=== PATIENT | male | born 1980 | race Caucasian/White ===

== ENCOUNTER 2019-02-12 23:19 | Emergency (ER) | payer OTHER ==
[2019-02-12 23:29] VITALS: BP 159/92; PULSE 80; TEMP 98.2; BMI 25.7
[2019-02-13] MEDS ORDERED: ACETAMINOPHEN 500 MG TABLET (FP) PO ONE (01:28)
[2019-02-13] MEDS ORDERED: LIDOCAINE 5% TOPICAL PATCH TP ONE (01:31)
[2019-02-13] MEDS ORDERED: ACETAMINOPHEN 325 MG TABLET (FP) ONE (01:37)
--- NOTE | 2019-02-13 01:37 | PDOC ---
Attending Attestation - Resident Resident Name: Chaka Maldonado - ED Attending Attestation I have performed the following: I have examined & evaluated the patient, The case was reviewed & discussed with the resident, I agree w/resident's findings & plan - HPI HPI: 02/13/19 06:02 Pt comes with left trapezius and neck pain. He drivees with his left arm. May be muscle spasm. May be torticollis. 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 - Physicial Exam PE: 02/13/19 06:02 Normal exam. Paraspinal cervical muscle spasm. Pt has no weakness of the left arm. Pt has FROM at the shoulders and no weakness in the elft rotator cuff. - Medical Decision Making 02/13/19 06:03 Pt treated with analgesics and muscle relaxants and he is feeling better. Home with mm relaxants and analgesia.
[2019-02-13] MEDS ORDERED: LIDOCAINE 5% TOPICAL PATCH ONE (01:38)
[2019-02-13] MEDS ORDERED: diphenhydrAMINE HCL 25 MG CAPSULE (FP) PO ONE ×2 (01:46→01:49)
--- NOTE | 2019-02-13 01:56 | PDOC ---
History of Present Illness - General Chief Complaint: Pain, Acute Stated Complaint: LEFT SHOULDER PAIN Time Seen by Provider: 02/13/19 01:17 History Source: Patient Exam Limitations: No Limitations - History of Present Illness Initial Comments: HPI: 38 y/o male presenting to [facility] ER complaining of five days of left neck and posterior shoulder pain with occasional radiation to lateral aspect of left upper extremity. Believes pain started while he was sitting in a chair. Reproducible with left lateral rotation of the neck and lying in the left lateral recumbent position. Denies numbness or tingling in left arm. Denies trauma to the area. Attempt relief with Motrin with limited success. Social Hx: - Works as [employer] Hx: - Pt denies past medical history. Denies prescription medications. Surgical Hx: - Denies past surgical history. Review of Systems: In addition to that documented in the HPI above, the additional ROS was obtained : Constitutional: Denies fevers or chills Head: Denies vision changes ENMT: Denies sore throat CV: Denies chest pain Resp: Denies SOB GI: Denies abd pain, vomiting, or diarrhea : Denies painful urination MSK: Denies recent trauma Skin: Denies new rashes Neuro: Denies new numbness or tingling or weakness Endocrine: Denies polyuria Heme: Denies bleeding or bruising Physical Examination: Constitutional: Well-developed, well-nourished adult male in no acute distress or obvious discomfort. Muscular body habitus. Found sleeping in right lateral recumbent position on hospital bed. Answered all questions appropriately and completely. Speech was non-labored, non-pressured. Head: Normocephalic. No obvious external signs of trauma. Neck: Supple, trachea is midline. Pain reproducible with left lateral rotation. Cardiovascular / Chest: Regular rate and regular rhythm. No murmur, rubs, clicks , or gallops. Peripheral pulses: radial pulses full. Respiratory: Breathing unlabored. Equal chest rise and fall. Clear to auscultation bilaterally. No stridor, no wheezing, no rhonchi. Gastrointestinal: abdomen is soft, non-tender, non-distended. Neuro: Alert and oriented x4. Moving all four extremities spontaneously. Upper extremity: proximal and distal strength 5/5. Clinical Trial Leader strength 5/5 - equal and symmetric. Unable to elicit TDR in left upper extremity. MSK: Left shoulder non-tender with palpation. Normal posterior left off and empty can test. Active and passive ROM of left shoulder and elbow unremarkable. No midline cervical tenderness or obvious deformity. Skin: Warm, dry, and intact. No bruising, rashes, or other lesions. Psych: Affect: appropriate. Mood: normal. MDM: *Reviewed vital signs, nursing notes, and prior visit documentation (if available). 38 y/o male presenting with five days of left sided neck pain. Afebrile. Vitals unremarkable for tachycardia or hypotension. Physical exam as described above. Neurologically intact. Suspect likely paraspinal muscle strain vs spasm. Given Acetaminophen, Lidoderm Patch, Robaxin, Benadryl, and Toradol for symptom relief. Prescribed short course of Robaxin. Provided list of stretches for further symptom relief. Chaka Maldonado M.D., PGY2 Emergency Medicine Resident Past History - Past Medical History Allergies/Adverse Reactions: Allergies Allergy/AdvReac Type Severity Reaction Status Date / Time No Known Allergies Allergy Verified 02/12/19 23:27 Home Medications: Ambulatory Orders Methocarbamol [Robaxin -] 500 mg PO TID #21 tablet 02/13/19 COPD: No - Immunization History Immunization Up to Date: Yes - Psycho Social/Smoking Cessation Hx Smoking History: Never smoked Have you smoked in the past 12 months: No Information on smoking cessation initiated: No Hx Alcohol Use: No Drug/Substance Use Hx: No *Physical Exam - Vital Signs Last Vital Signs Temp Pulse Resp BP Pulse Ox 98.2 F 80 20 159/92 99 02/12/19 23:27 02/12/19 23:27 02/12/19 23:27 02/12/19 23:27 02/12/19 23:27 ED Treatment Course - Medications Given in the ED: ED Medications Discontinued Medications Generic Name Dose Route Start Last Admin Trade Name Freq PRN Reason Stop Dose Admin Acetaminophen 975 mg 02/13/19 01:28 02/13/19 01:39 Tylenol - PO 02/13/19 01:29 975 mg ONCE ONE Administration Diphenhydramine HCl 50 mg 02/13/19 01:46 02/13/19 01:50 Benadryl - PO 02/13/19 01:47 50 mg ONCE ONE Administration Lidocaine 1 patch 02/13/19 01:31 02/13/19 01:39 Lidoderm Patch - TP 02/13/19 01:32 1 patch ONCE ONE Administration Discharge - Discharge Information Problems reviewed: Yes Clinical Impression/Diagnosis: Neck pain on left side Condition: Good Disposition: HOME - Admission No - Additional Discharge Information Prescriptions: Methocarbamol [Robaxin -] 500 mg PO TID #21 tablet - Follow up/Referral - Patient Discharge Instructions Patient Printed Discharge Instructions: DI for Neck Pain Additional Instructions: You were seen today for left sided neck and shoulder pain. The discomfort is likely caused by a muscle strain or spasm. It will likely get better over the next several days. I have sent a prescription for Robaxin to your pharmacy. Take as directed on the package insert. Do not exceed the recommended dosage. THIS MEDICATION MAY CAUSE DROWSINESS. DO NOT DRIVE OR OPERATE HEAVY MACHINERY WHILE USING. You can take over the counter Tylenol or Advil as needed for pain. Take as directed on the package insert. Do not exceed the recommended dosage. Follow up with your primary care doctor within the next week or as needed. You will need to call to make an appointment. Go to the nearest emergency department if your condition worsens or you feel like you need additional emergency evaluation. Below are a list of stretches that may help with your pain: Stretching exercises The range of motion of the neck must be restored and preserved after an injury; this is done with exercises that stretch and strengthen the neck muscles. Range of motion exercises and stretching may help decrease pain from muscle injury. It is best to perform stretching exercises when the muscles are warm, such as after the application of heat, or after a few minutes of cardiovascular warm-up exercises. Exercises can be performed in the morning to relieve stiffness and again at night before going to bed. Expect mild, achy muscle pain if you are new to exercise. A sharp or electric pain in the shoulder or arm is not normal and should be reported to a health care provider. Do not attempt to perform these exercises if you have a pinched nerve in the neck, especially if there is pain or numbness into the arm and hand, unless recommended by a health care provider. While these exercises can dramatically improve symptoms of a pinched nerve, they can actually make the problem worse if performed improperly. The most useful stretching exercises for the neck include the following: -Neck bending Tilt the head forward and try to touch your chin to your neck. This motion is more of a nod. Hold for a few seconds, breathe in gradually, and exhale slowly with each exercise. Exhaling with the movement helps relax the muscles. Repeat 10 to 15 times. Relax the neck and back muscles with each neck bend. -Shoulder rolls In the sitting or standing position, hold the arms at the side with the elbows bent. Try to pinch the shoulder blades together. Roll the shoulders backwards 10 to 15 times, moving in a rhythmic, rowing motion. Proper neck alignment posture is important during this exercise. Rest. Roll the shoulders forwards 10 to 15 times. Other exercise may include neck rotation, neck tilting, vertical shoulder stretches, upper back stretches, and back bending. -Neck rotation Slowly look to the right. Hold for a few seconds. Look to the center. Rest for a few seconds between movements. Repeat 10 to 15 times. Perform on the left side. -Neck tilting Look straight forward, then tilt the top of the head to the right, trying to touch your right ear to the right shoulder (without moving the shoulder). Hold in place for a few seconds. Return the head to the center. Repeat 10 to 15 times. Repeat on the left side. -Vertical shoulder stretches In the sitting or standing position, use the right hand to hold the left wrist and pull the arm (and shoulder) up and over the head, towards the right. Hold for five seconds. Keep the left shoulder and back muscles relaxed. Rest and repeat 10 to 15 times. Repeat using left hand to hold right wrist. -Upper back stretches In the standing position, lean forward from the hips and rest both hands on a low counter with the elbows straight. Exhale, relax the neck and shoulders, and allow the head to fall forward as you round the upper back. This requires the shoulder blades to spread apart and mimics the motion of a cat stretching its back. Exhaling with the motion helps to relax the muscles. Return to the standing position with hands on a counter. Repeat slowly 10 times. -Upper back side bends Stand or sit up straight in a chair. Bend the trunk to the right while holding the hands together slightly behind the neck for support. Hold for five seconds, and then return to center. Repeat to the left. Repeat 10 to 15 times. Keep the lower back straight or supported against a chair. Remember to inhale and exhale through the abdomen and not hold your breath. Print Language: LITHUANIAN - Post Discharge Activity Work/Back to School Note: Back to Work
[2019-02-13] MEDS ORDERED: METHOCARBAMOL 500 MG TABLET PO ONE (02:34)
[2019-02-13] MEDS ORDERED: METHOCARBAMOL 500 MG TABLET ONE (02:41)
[2019-02-13] MEDS ORDERED: KETOROLAC TROMETHAMINE 60 MG/2 ML VIAL IM ONE (04:04)
[2019-02-13] MEDS ORDERED: KETOROLAC TROMETHAMINE 60 MG/2 ML VIAL ONE (04:04)
[2019-02-13] MEDS ORDERED: KETOROLAC TROMETHAMINE 30 MG/1 ML VIAL IM ONE (04:05)
--- NOTE | 2019-02-13 16:48 | EKG ---
Test Reason : Blood Pressure : / mmHG Vent. Rate : 072 BPM Atrial Rate : 072 BPM P-R Int : 148 ms QRS Dur : 104 ms QT Int : 388 ms P-R-T Axes : 057 047 053 degrees QTc Int : 424 ms NORMAL SINUS RHYTHM NORMAL ECG NO PREVIOUS ECGS AVAILABLE Confirmed by TIMOTHY CHAMBERS MD ([id number]) on 02/13/2019 4:47:41 PM Referred By: Confirmed By:TIMOTHY CHAMBERS MD
[2019-02-13] MEDS ORDERED: LIDOCAINE PATCH REMOVAL MC SCH (22:00)
== END 2019-02-13 04:02 | disposition home or self-care (01) ==
LOC: JER 23:19
PROC: 3E0233Z Introduction of Anti-inflammatory into Muscle, Percutaneous Approach (ICD-10-PCS; principal; 2019-02-12)
DX: M62.838 Other muscle spasm (principal)
CPT/HCPCS: 93005; 93010; 96372; 99282-25